=== PATIENT | female | born 1955 | race Caucasian/White ===

== ENCOUNTER 2023-11-26 10:01 | Day surgery (SDC) | payer MEDICARE, BC, OTHER ==
[~2023-11-26] VITALS: Ht 154.9 cm; Wt 92.4 kg
[2023-11-26] MEDS ORDERED: NAC600 MG (10:20)
[2023-11-26] MEDS ORDERED: MULVITA (10:20)
== END 2023-11-26 11:34 | disposition home or self-care (01) ==
LOC: ORSCSDS 10:01
PROVIDERS: Specialist
PROC: 0DB68ZX Excision of Stomach, Via Natural or Artificial Opening Endoscopic, Diagnostic (ICD-10-PCS; principal; 2023-11-26 11:30)
PROC: 0DB58ZX Excision of Esophagus, Via Natural or Artificial Opening Endoscopic, Diagnostic (ICD-10-PCS; principal; 2023-11-26 11:30)
DX: K21.9 Gastro-esophageal reflux disease without esophagitis (principal); K44.9 Diaphragmatic hernia without obstruction or gangrene; M79.7 Fibromyalgia; E78.5 Hyperlipidemia, unspecified; I10 Essential (primary) hypertension
CPT/HCPCS: 82947; 88305; 88342; J2704; J7120